=== PATIENT | female | born 1955 | race African-American/Black ===

== ENCOUNTER 2022-02-16 10:45 | Emergency (ER) | payer MEDICARE, MEDICAID ==
[~2022-02-16] VITALS: Ht 160 cm; Wt 115.0 kg
[2022-02-16] MEDS ORDERED: ACETAMINOPHEN 500MG TABLET PO ONE (11:15)
[2022-02-16] MEDS ORDERED: ACET-2708 MT (12:51)
[2022-02-16 13:32] VITALS: BP 148/85
== END 2022-02-16 13:33 | disposition home or self-care (01) ==
LOC: ER 12:03
DX: M25.561 Pain in right knee (principal); E11.9 Type 2 diabetes mellitus without complications; I10 Essential (primary) hypertension; M17.11 Unilateral primary osteoarthritis, right knee; Z87.11 Personal history of peptic ulcer disease; Z90.710 Acquired absence of both cervix and uterus; Z98.890 Other specified postprocedural states
CPT/HCPCS: 73562; 99283

== ENCOUNTER 2022-05-26 13:23 | Emergency (ER) | payer OTHER, MEDICAID ==
[~2022-05-26] VITALS: Ht 160 cm; Wt 116.0 kg
[~2022-05-26 13:23] MED LIST: ACET-2708 MT
[2022-05-26 15:57] LABS: CLARITY URINE CLEAR (CLEAR); COLOR URINE YELLOW (YELLOW); KETONES URINE NEGATIVE (NEGATIVE); LEUKOCYTE ESTERASE URINE NEGATIVE (NEGATIVE); NITRITE URINE NEGATIVE (NEGATIVE); OCCULT BLOOD URINE NEGATIVE (NEGATIVE); PROTEIN URINE NEGATIVE (NEGATIVE); SPECIFIC GRAVITY URINE 1.029 (1.005-1.030)
[2022-05-26 18:38] LABS: BASOPHILS % 0.7 % (0.0-2.0); EOSINOPHILS % 1.7 % (0.0-5.0); HEMATOCRIT. 41.6 % (36.0-48.0); LYMPHOCYTES % 36.7 % (20.0-50.0); MEAN CORPUSCULAR HEMOGLOBIN 28.8 pg (28.0-32.0); MEAN CORPUSCULAR VOLUME 85.5 fL (81.0-99.0); MEAN PLATELET VOLUME 7.1 fl (7.4-10.4); MONOCYTES % 7.9 % (2.0-8.0); PLATELET 262 x1000/uL (130-400); RED BLOOD CELL COUNT 4.87 mill/uL (4.2-5.4); RED CELL DISTRIBUTION WIDTH 13.7 % (11.6-14.6)
[2022-05-26] MEDS ORDERED: CIPR-263 MT (19:17)
[2022-05-26 19:27] LABS: CHLORIDE 105 mEq/L (98-107)
[2022-05-26 20:47] VITALS: BP 147/94
== END 2022-05-26 20:59 | disposition home or self-care (01) ==
LOC: ER 13:23
DX: M54.50 Low back pain, unspecified (principal); R30.9 Painful micturition, unspecified; E11.9 Type 2 diabetes mellitus without complications; I10 Essential (primary) hypertension; Z90.710 Acquired absence of both cervix and uterus
CPT/HCPCS: 36415; 74176; 80053; 81003; 83605; 84484; 85025; 93005; 99285

== ENCOUNTER 2022-11-19 13:10 | Emergency (ER) | payer OTHER, MEDICAID ==
[~2022-11-19] VITALS: Ht 160 cm; Wt 116.0 kg
[~2022-11-19 13:10] MED LIST changes: +CIPR-263 MT
[2022-11-19] MEDS: CYCLOBENZAPRINE 10MG TABLET PO ONE (16:30)
[2022-11-19] MEDS: KETOROLAC 60MG/2ML VIAL IM ONE (16:30)
[2022-11-19 17:09] LABS: BASOPHILS % 0.9 % (0.0-2.0); EOSINOPHILS % 2.3 % (0.0-5.0); HEMATOCRIT. 43.4 % (36.0-48.0); HEMOGLOBIN. 14.2 g/dL (12.0-16.0); LYMPHOCYTES % 39.8 % (20.0-50.0); MEAN CORPUSCULAR HEMOGLOBIN 28.4 pg (28.0-32.0); MEAN CORPUSCULAR VOLUME 86.6 fL (81.0-99.0); MEAN PLATELET VOLUME 7.3 fl (7.4-10.4); MONOCYTES % 7.7 % (2.0-8.0); NEUTROPHILS % 49.3 % (40.0-76.0); PLATELET 251 x1000/uL (130-400); RED BLOOD CELL COUNT 5.01 mill/uL (4.2-5.4); RED CELL DISTRIBUTION WIDTH 13.7 % (11.6-14.6)
[2022-11-19 17:15] LABS: PROTHROMBIN TIME 10.7 sec (9.6-11.0)
[2022-11-19 17:18] LABS: CHLORIDE 106 mEq/L (98-107)
[2022-11-19] MEDS ORDERED: TAM75 MT (18:23)
[2022-11-19 18:36] VITALS: BP 167/75
== END 2022-11-19 18:41 | disposition home or self-care (01) ==
LOC: ER 13:10
DX: J10.1 Influenza due to other identified influenza virus with other respiratory manifestations (principal); I10 Essential (primary) hypertension; E11.9 Type 2 diabetes mellitus without complications; Z98.890 Other specified postprocedural states
CPT/HCPCS: 36415; 71045; 80053; 83880; 84484; 85025; 85610; 87426; 87804; 93005; 96372; 99285; C9803; J1885

== ENCOUNTER 2023-04-23 12:14 | Emergency (ER) | payer OTHER, MEDICAID ==
[~2023-04-23] VITALS: Ht 160 cm; Wt 118.0 kg
[~2023-04-23 12:14] MED LIST changes: +TAM75 MT
[2023-04-23 12:53] LABS: BASOPHILS % 1.2 % (0.0-2.0); EOSINOPHILS % 2.1 % (0.0-5.0); HEMATOCRIT. 41.4 % (36.0-48.0); MEAN CORPUSCULAR HEMOGLOBIN 29.1 pg (28.0-32.0); MEAN PLATELET VOLUME 6.8 fl (7.4-10.4); MONOCYTES % 7.2 % (2.0-8.0); NEUTROPHILS % 49.5 % (40.0-76.0); PLATELET 271 x1000/uL (130-400); RED BLOOD CELL COUNT 4.81 mill/uL (4.2-5.4); RED CELL DISTRIBUTION WIDTH 13.8 % (11.6-14.6)
[2023-04-23 13:00] LABS: CHLORIDE 106 mEq/L (98-107)
[2023-04-23] MEDS ORDERED: ACETAMINOPHEN 325MG TABLET PO ONE (16:00)
[2023-04-23 16:17] VITALS: BP 158/87
== END 2023-04-23 17:26 | disposition home or self-care (01) ==
LOC: ER 13:23
DX: I16.1 Hypertensive emergency (principal); I10 Essential (primary) hypertension; E11.9 Type 2 diabetes mellitus without complications; Z98.890 Other specified postprocedural states
CPT/HCPCS: 36415; 80053; 85025; 99283

== ENCOUNTER 2023-08-03 21:30 | Emergency (ER) | payer OTHER, MEDICAID ==
[~2023-08-03] VITALS: Ht 160 cm; Wt 115.7 kg
[2023-08-03 21:55] VITALS: O2SAT 98
[2023-08-03] MEDS ORDERED: IBUPROFEN 400MG TABLET PO ONE (23:45)
[2023-08-03] MEDS ORDERED: ACETAMINOPHEN 325MG TABLET PO ONE (23:45)
[2023-08-03 23:50] VITALS: BP 144/91
[2023-08-04] MEDS ORDERED: DEXT15SY3 PO (00:28)
[2023-08-04] MEDS ORDERED: TOPUD MT (00:28)
[2023-08-04 00:44] VITALS: PULSE 94; RESP 16; TEMP 98.6
== END 2023-08-04 00:45 | disposition home or self-care (01) ==
LOC: ER 21:30
DX: B34.9 Viral infection, unspecified (principal); R05.9 Cough, unspecified; E11.9 Type 2 diabetes mellitus without complications; I10 Essential (primary) hypertension; Z90.710 Acquired absence of both cervix and uterus
CPT/HCPCS: 71045; 99283

== ENCOUNTER 2025-11-10 13:55 | Emergency (ER) | payer MEDICARE, MEDICAID ==
[~2025-11-10] VITALS: Ht 167.6 cm; Wt 105.0 kg
[~2025-11-10 13:55] MED LIST changes: -CIPR-263 MT; +DEXT15SY3 PO; +FAMO-135 MT; +TOPUD MT
[2025-11-10 14:04] VITALS: TEMP 37; O2SAT 98
[2025-11-10 15:52] LABS: BASOPHILS % 0.6 % (0.0-2.0); EOSINOPHILS % 0.8 % (0.0-5.0); HEMATOCRIT. 39.6 % (36.0-48.0); HEMOGLOBIN. 13.8 g/dL (12.0-16.0); LYMPHOCYTES % 16.0 % (20.0-50.0); MEAN PLATELET VOLUME 7.0 fl (7.4-10.4); MONOCYTES % 12.8 % (2.0-8.0); NEUTROPHILS % 69.8 % (40.0-76.0); PLATELET 283 x1000/uL (130-400); RED BLOOD CELL COUNT 4.73 mill/uL (4.2-5.4); RED CELL DISTRIBUTION WIDTH 14.0 % (11.6-14.6)
[2025-11-10 16:05] LABS: CREATININE 1.1 mg/dL (0.6-1.0); UREA NITROGEN BLOOD 17 mg/dL (9-23)
[2025-11-10 16:06] LABS: PROTEIN TOTAL 7.7 g/dL (6.0-8.3)
[2025-11-10 16:07] LABS: ASPARTATE AMINOTRANSFERASE 23 IU/L (<34); BILIRUBIN DIRECT 0.2 mg/dL (<=3.0); BILIRUBIN TOTAL 0.7 mg/dL (0.1-1.0)
[2025-11-10] MEDS ORDERED: POLY17PO3 MT (17:24)
[2025-11-10] MEDS ORDERED: NA P133E8 RC (17:24)
[2025-11-10] MEDS: LACTULOSE 20G/30ML UDC PO ONE (18:22)
[2025-11-10] MEDS: NA PHOS,M-B/NA PHOS,DI-BA ENEMA 118ML PR ONE (18:23)
[2025-11-10] MEDS: POTASSIUM CHLORIDE 20MEQ/PACKET PO NR (18:23)
[2025-11-10 18:25] VITALS: BP 112/83; PULSE 89; RESP 14; O2SAT 98
== END 2025-11-10 18:27 | disposition home or self-care (01) ==
LOC: ER 13:55
DX: K59.00 Constipation, unspecified (principal); E78.5 Hyperlipidemia, unspecified; E87.6 Hypokalemia; E11.9 Type 2 diabetes mellitus without complications; I10 Essential (primary) hypertension; Z85.72 Personal history of non-Hodgkin lymphomas; Z90.710 Acquired absence of both cervix and uterus
CPT/HCPCS: 36415; 74176; 80048; 80076; 84443; 85025; 99284